=== PATIENT | female | born 1955 | race Caucasian/White ===

== ENCOUNTER 2024-12-26 12:11 | Outpatient (CLI) | payer OTHER | END 2024-12-26 12:12 | disposition home or self-care (01) | LOC: SCSRAD 12:11 | PROVIDERS: ATTEND Student in an Organized Health Care Education/Training Program | DX: M54.50 Low back pain, unspecified (principal); S32.019A Unspecified fracture of first lumbar vertebra, initial encounter for closed fracture; M47.816 Spondylosis without myelopathy or radiculopathy, lumbar region | CPT/HCPCS: 72120 ==

== ENCOUNTER 2025-04-11 15:10 | Outpatient (CLI) | payer MEDICARE | END 2025-04-11 15:11 | disposition home or self-care (01) | LOC: SCSRAD 15:10 | PROVIDERS: ATTEND Student in an Organized Health Care Education/Training Program | DX: R05.9 Cough, unspecified (principal) | CPT/HCPCS: 71046 ==